=== PATIENT | male | born 1955 | race Caucasian/White ===

== ENCOUNTER 2017-03-19 16:45 | Emergency (ER) | payer OTHER ==
[~2017-03-19] VITALS: Ht 182.9 cm; Wt 112.5 kg
[2017-03-19] MEDS ORDERED: TETANUS/DIPHTHERIA TOX ADULT 0.5 ML SYR IM ONE (17:15)
[2017-03-19] MEDS ORDERED: CEFAZOLIN SOD 1 GM in WATER STERILE 10ML VIAL 10 ML IM SCH (17:15)
[2017-03-19] MEDS ORDERED: HYDROCODONE/APAP 10MG-325MG TAB PO ONE (17:15)
[2017-03-19] MEDS ORDERED: CEFAZOLIN SOD 1 GM VIAL IM NR (17:45)
--- NOTE | 2017-03-19 19:22 | Diagnostic Imaging Report ---
Exam: Finger 3 views History: Pain Comparison: None. Findings: Soft tissue defect volar distal thumb. No fracture. Impression: Soft tissue defect volar distal thumb Signed by: Dr. Devonte Mcmahan M.D. on 03/19/2017 7:19 PM
[2017-03-19 20:34] VITALS: BP 148/74
== END 2017-03-19 20:38 | disposition home or self-care (01) ==
LOC: ER 16:45
DX: S61.011A Laceration without foreign body of right thumb without damage to nail, initial encounter (principal); W29.3XXA Contact with powered garden and outdoor hand tools and machinery, initial encounter; Y92.008 Other place in unspecified non-institutional (private) residence as the place of occurrence of the external cause
CPT/HCPCS: 90714; 99283